=== PATIENT | male | born 1980 | race Caucasian/White ===

== ENCOUNTER → 2018-11-27 | Outpatient (CLI) | payer BC ==
--- NOTE | 2018-11-27 17:27 | REP ---
Clinical: Scrotal pain. Technique: Real time olivarez scale and color Doppler evaluation using linear high frequency transducer. Findings: The bilateral testicles and epididymi are relatively normal in contour, size, echogenicity, and vascularity. No evidence for torsion, infectious/inflammatory process, or mass. Incidental 2.3 mm and 1.7 mm right epididymal head cysts identified. No hydrocele. Mild left-sided varicoceles measuring up to 3.5 mm diameter. Right testicle measures 4.5 x 2.2 x 3.1 cm. Left testicle measures 4.0 x 2.0 x 3.6 cm. Impression: 1. Mild left-sided varicoceles. 2. Small incidental right epididymal head cysts. 3. Otherwise normal examination. Electronically Signed by Karl Purcell MD 11/27/2018 05:18 P
== END ==
LOC: M RAD 16:07
PROVIDERS: ATTEND Surgery
DX: I86.1 Scrotal varices (principal); N50.3 Cyst of epididymis

== ENCOUNTER 2023-06-30 06:21 | Emergency (ER) | payer BC, SELFPAY ==
[~2023-06-30] VITALS: Ht 165.1 cm; Wt 105.1 kg
[2023-06-30] MEDS ORDERED: LIDOCAINE 5% (LIDODERM) PATCH TD ONE (06:55)
[2023-06-30] MEDS ORDERED: diazePAM 5MG TABLET PO ONE (06:55)
[2023-06-30] MEDS ORDERED: KETOROLAC 30 MG/ML 1ML VIAL IM ONE (06:55)
[2023-06-30] MEDS ORDERED: IBUP-354 PO (07:57)
[2023-06-30] MEDS ORDERED: METH-1164 PO (07:57)
[2023-06-30 08:47] VITALS: BP 142/102; TEMP 97.7; O2SAT 95
== END 2023-06-30 08:56 | disposition home or self-care (01) ==
LOC: M ED 06:21
DX: M54.50 Low back pain, unspecified (principal)
CPT/HCPCS: 72110; 96372; 99283; J1885